=== PATIENT | female | born 1985 | race African-American/Black ===

== ENCOUNTER 2017-11-12 15:51 | Emergency (ER) | payer OTHER ==
[2017-11-12 16:05] VITALS: BP 140/90; PULSE 91; TEMP 99.2; BMI 20.9
--- NOTE | 2017-11-12 16:05 | PDOC ---
Rapid Medical Evaluation Chief Complaint: Vaginal Bleeding Medical Evaluation: Allergies Allergy/AdvReac Type Severity Reaction Status Date / Time No Known Allergies Allergy Verified 11/12/17 16:01 11/12/17 16:03 I have performed a brief in-person evaluation of this patient. The patient presents with a chief complaint of: Blood on tissue x 5 days. Unsure if as have had both neg and positive preg tests over past week. LMP was last month, would be ~6 weeks if preg per pt, No abd pain, dysuria, n/v/ f/c. w/ 1 spon AB Pertinent physical exam findings:stable I have ordered the following:beta/ua The patient will proceed to the ED for further evaluation 11/12/17 16:06 Discharge Disposition - Diagnosis Vaginal bleeding - Referrals - Patient Instructions - Post Discharge Activity
--- NOTE | 2017-11-12 16:40 | PDOC ---
History of Present Illness - General Chief Complaint: Vaginal Bleeding Stated Complaint: VAGINAL BLEEDING () Time Seen by Provider: 11/12/17 16:10 History Source: Patient Exam Limitations: No Limitations - History of Present Illness Initial Comments: CHIEF COMPLAINT: 32 y/o afebrile female, [id number], with LMP of 4/15 c/o vaginal bleeding. HISTORY OF PRESENT ILLNESS: The patient states she had sex on 10/18. She did take a test that was positive. she fell 5 days ago and then then next day began vaginal bleeding. She states she still has some bleeding and a questionable 2nd test. SHe was seen at a clinic today and had a beta of 90 with an ultrasound showing no IUP but complex right adnexal cyst. SHe was told to come here for possible ectopic. Vital signs on arrival are within normal limits. REVIEW OF SYSTEMS: GENERAL/CONSTITUTIONAL: No fever/chills. No weakness. No weight change. HEAD, EYES, EARS, NOSE AND THROAT: No change in vision. No ear pain or discharge. No sore throat. CARDIOVASCULAR: No chest pain or shortness of breath. RESPIRATORY: No cough, wheezing, or hemoptysis. GASTROINTESTINAL: No abd pain, nausea, vomiting, diarrhea. GENITOURINARY: No dysuria, frequency, or change in urination. +vaginal bleeding. MUSCULOSKELETAL: No joint or muscle swelling or pain. No neck or back pain. SKIN: No rash or easy bruising. NEUROLOGIC: No headache, vertigo, loss of consciousness, or loss of sensation. PHYSICAL EXAM: GENERAL: The patient is awake, alert, and fully oriented, in no acute distress. HEAD: Normal with no signs of trauma. ABDOMEN: Soft, non-distended, non-tender even to deep palpation, no hepatomegaly or splenomegaly, no masses. VAGINAL: DEFERRED EXTREMITIES: Normal range of motion, no edema. NEUROLOGICAL: Normal speech, normal gait. CN II-XII grossly intact. SKIN: Warm, dry, normal turgor, no rashes or lesions noted. Past History - Past Medical History Allergies/Adverse Reactions: Allergies Allergy/AdvReac Type Severity Reaction Status Date / Time No Known Allergies Allergy Verified 11/12/17 16:01 Home Medications: Ambulatory Orders NK [No Known Home Medication] 11/12/17 COPD: No - Immunization History Immunization Up to Date: Yes - Suicide/Smoking/Psychosocial Hx Smoking History: Never smoked Hx Alcohol Use: No Drug/Substance Use Hx: No *Physical Exam - Vital Signs Last Vital Signs Temp Pulse Resp BP Pulse Ox 99.2 F 91 H 18 140/90 99 11/12/17 16:00 11/12/17 16:00 11/12/17 16:00 11/12/17 16:00 11/12/17 16:00 Medical Decision Making - Medical Decision Making A/P: 32 y/o female who had beta and ultrasound performed today from another location sent here for management of possible ectopic . Discussed the case with Dr. Landaverde in the ER and he confirms there is nothing to do at this time. The patient is to return to the ER in 2 days for repeat beta HCG and transvaginal ultrasound to determine ectopic or not. Patient given instructions. Instructed her to come to the ER sooner if she develops abdominal pain or heavy vaginal bleeding, or any other concerning symptoms. The patient verbalizes understanding of all instructions, has no further questions and is awaiting discharge. *DC/Admit/Observation/Transfer Diagnosis at time of Disposition: Vaginal bleeding during - Discharge Dispostion Disposition: HOME Condition at time of disposition: Good - Referrals - Patient Instructions Printed Discharge Instructions: DI for Vaginal Bleeding During Additional Instructions: Discharge Instructions: -You have a positive blood test with a beta hcg of 90 -Your ultrasound shows no IUP but a complex right ovarian cyst, which is concerning for an ectopic -You must return to the ER or your doctor's office in 2 days to have the blood work and ultrasound repeated -Please return to the ER immediately with any worsening of pain or bleeding - Post Discharge Activity
== END 2017-11-12 16:47 | disposition home or self-care (01) ==
LOC: JERFT 15:51
DX: O26.891 Other specified pregnancy related conditions, first trimester (principal); O20.8 Other hemorrhage in early pregnancy; Z3A.01 Less than 8 weeks gestation of pregnancy
CPT/HCPCS: 99281-25

== ENCOUNTER 2017-11-13 02:53 | Emergency (ER) | payer OTHER ==
[2017-11-13 03:43] VITALS: BP 136/90; PULSE 86; TEMP 98.1; BMI 25.4
--- NOTE | 2017-11-13 05:11 | PDOC ---
History of Present Illness - General Chief Complaint: Vaginal Bleeding Stated Complaint: ABD PAIN Time Seen by Provider: 11/13/17 04:41 History Source: Patient Exam Limitations: No Limitations - History of Present Illness Initial Comments: 11/13/17 05:41 Best Contact:[phone] PCP:N/A Pmhx:N/A Pshx:N/A Allergies:NKDA FH:N/A Social Hx: Cigarettes/ 0 Alcohol/ 0 Drugs/0 LMP:10/03/2017 32-year-old female presents to the emergency department for repeat blood tests. Patient states she fell onto her buttocks (11/07/2017) and started vaginally bleeding (11/08/2017).patient states she noticed some clots on the and was concerned but didn't get a chance to go see her respite provider/Dr. Campbell until yesterday (11/12/2017. patient was ultimately sent for a transvaginal ultrasound. Patient states she had an ultrasound done at [facility] and she was informed that there is no IUP but a complex right ovarian cyst. Patient was discharged from [facility] yesterday morning and came here to [facility] emergency department yesterday afternoon. Patient states upon discharge, she was informed to have blood work done. Patient states she was unclear on when she should return for blood work therefore she is here now. Patient denies fever, chills, nausea/vomiting, headache, dizziness, lightheadedness, neck pain/stiffness, back pains, chest pain, shortness of breath, abdominal pains, flank pains, urinary symptoms: Frequency/urgency/ hesitancy, hematuria. Patient states her vaginal bleeding has subsided to a scant amount now. Past History - Past Medical History Allergies/Adverse Reactions: Allergies Allergy/AdvReac Type Severity Reaction Status Date / Time No Known Allergies Allergy Verified 11/13/17 03:43 Home Medications: Ambulatory Orders NK [No Known Home Medication] 11/12/17 COPD: No - Reproductive History Is Patient Now?: Yes - Immunization History Immunization Up to Date: Yes - Suicide/Smoking/Psychosocial Hx Smoking History: Never smoked Have you smoked in the past 12 months: No Information on smoking cessation initiated: No Hx Alcohol Use: No Drug/Substance Use Hx: No Review of Systems - Review of Systems Able to Perform ROS?: Yes Comments:: 11/13/17 05:46 CONSTITUTIONAL: Absent: fever, chills, diaphoresis, generalized weakness, malaise, loss of appetite HEENT: Absent: rhinorrhea, nasal congestion, throat pain, throat swelling, difficulty swallowing, mouth swelling, ear pain, eye pain, visual Changes CARDIOVASCULAR: Absent: chest pain, loss of consciousness, palpitations, irregular heart rate, peripheral edema RESPIRATORY: Absent: cough, shortness of breath, dyspnea with exertion, orthopnea, wheezing, stridor, hemoptysis GASTROINTESTINAL: Absent: abdominal pain, abdominal distension, nausea, vomiting, diarrhea, constipation, melena, hematochezia GENITOURINARY: Absent: dysuria, frequency, urgency, hesitancy, hematuria, flank pain, genital pain MUSCULOSKELETAL: Absent: myalgia, arthralgia, joint swelling SKIN: Absent: rash, itching, pallor HEMATOLOGIC/IMMUNOLOGIC: Absent: easy bleeding, easy bruising, lymphadenopathy, frequent infections ENDOCRINE: Absent: unexplained weight gain, unexplained weight loss, heat intolerance, cold intolerance NEUROLOGIC: Absent: headache, focal weakness or paresthesias, dizziness, unsteady gait, seizure, mental status changes, bladder or bowel incontinence PSYCHIATRIC: Absent: anxiety, depression, suicidal or homicidal ideation, hallucinations. Is the patient limited Kazakh proficient: No *Physical Exam - Vital Signs Last Vital Signs Temp Pulse Resp BP Pulse Ox 98.1 F 86 18 136/90 98 11/13/17 03:41 11/13/17 03:41 11/13/17 03:41 11/13/17 03:41 11/13/17 03:41 - Physical Exam Comments: 11/13/17 05:46 GENERAL: Well developed, well nourished. Awake and alert. No acute distress. HEENT: Normocephalic, atraumatic. PERRLA, EOMI. No conjunctival pallor. Sclera are non- icteric. Moist mucous membranes. Oropharynx is clear. NECK: Supple. Full ROM. No JVD. Carotid pulses 2+ and symmetric, without bruits. No thyromegaly. No lymphadenopathy. CARDIOVASCULAR: Regular rate and rhythm. No murmurs, rubs, or gallops. Distal pulses are 2+ and symmetric. PULMONARY: No evidence of respiratory distress. Lungs clear to auscultation bilaterally. No wheezing, rales or rhonchi. ABDOMINAL: Soft. Non-tender. Non-distended. No rebound or guarding. No organomegaly. Normoactive bowel sounds. MUSCULOSKELETAL Normal range of motion at all joints. No bony deformities or tenderness. No CVA tenderness. EXTREMITIES: No cyanosis. No clubbing. No edema. No calf tenderness. SKIN: Warm and dry. Normal capillary refill. No rashes. No jaundice. NEUROLOGICAL: Alert, awake, appropriate. Cranial nerves 2-12 intact. No deficits to light touch and temperature in face, upper extremities and lower extremities. No motor deficits in the in face, upper extremities and lower extremities. Normoreflexic in the upper and lower extremities. Normal speech. Toes are down- going bilaterally. Gait is normal without ataxia. PSYCHIATRIC: Cooperative. Good eye contact. Appropriate mood and affect. Pelvic: External genitalia normal without lesions. Vaginal vault small amount of blood Cervix is long and closed. 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 Patient states she was seen by her respite provider yesterday and was sent for an ultrasound which she had done at [facility] yesterday morning. Yesterday afternoon, she was here in the emergency department at [facility]. She was informed that you were no IUP with a complex right ovarian cysts. Patient had her beta Quant done and was 90. Patient was informed to return back to the emergency department or the respite provider in 2-3 days for a repeat beta Quant and transvaginal ultrasound. Patient states she was confused about when to return so she decided to come here now. CBC/chemistry/UA and type and screen has been drawn by me during this visit. *DC/Admit/Observation/Transfer Diagnosis at time of Disposition: Vaginal bleeding during , Threatened - Discharge Dispostion Disposition: HOME Condition at time of disposition: Fair Decision to Admit order: No - Referrals Referrals: Dallas Lopes MD [Staff Physician] - - Patient Instructions Printed Discharge Instructions: DI for Threatened Additional Instructions: Increase fluids Tylenol as needed for pain Follow-up with the respite provider and have a repeat blood work/ultrasound done in 2 days Return back to the emergency department for any concerns - Post Discharge Activity
[2017-11-13 05:27] LABS: BASO % 1.1 % (0-2.0); EOS % 1.8 % (0-4.5); HEMOGLOBIN 12.4 GM/dL (10.7-15.3); LYMPH % 27.4 % (8-40); MCH 28.3 pg (25.7-33.7); MCHC 32.7 g/dl (32.0-36.0); MEAN CELL VOLUME 86.6 fl (80-96); MONO % 14.3 % (3.8-10.2); NEUT % 55.4 % (42.8-82.8); PLATELET COUNT 273 K/MM3 (134-434); RBC 4.39 M/mm3 (3.60-5.2); RDW 13.8 % (11.6-15.6); WHITE BLOOD COUNT 8.3 K/mm3 (4.0-10.0)
[2017-11-13 05:32] LABS: URINE APPEARANCE CLEAR; URINE BILIRUBIN NEGATIVE (<2.0 mg/dL); URINE COLOR LTYELLOW; URINE GLUCOSE (UA) NEGATIVE (NEGATIVE); URINE KETONE TRACE (NEGATIVE); URINE LEUK ESTERASE NEGATIVE (NEGATIVE); URINE NITRITE NEGATIVE (NEGATIVE); URINE PROTEIN NEGATIVE (NEGATIVE)
[2017-11-13 05:41] LABS: EPI CELLS RARE /HPF (FEW); URINE MUCUS RARE
[2017-11-13 05:58] LABS: ALBUMIN 3.5 g/dl (3.4-5.0); ANION GAP 7 (8-16); BILIRUBIN,TOTAL 0.4 mg/dL (0.2-1.0); BLOOD UREA NITROGEN 11 mg/dL (7-18); CALCIUM 8.6 mg/dL (8.5-10.1); CHLORIDE 106 mmol/L (98-107); CO2 26 mmol/L (21-32); CREATININE 0.8 mg/dL (0.55-1.02); GLUCOSE,RANDOM 83 mg/dL (74-106); POTASSIUM 3.6 mmol/L (3.5-5.1); SGOT/AST 12 U/L (15-37); SGPT/ALT 12 U/L (12-78); SODIUM 139 mmol/L (136-145); TOT PROT 7.4 g/dl (6.4-8.2)
[2017-11-13 06:00] LABS: ALK PHOS 75 U/L (45-117)
== END 2017-11-13 06:37 | disposition home or self-care (01) ==
LOC: JER 02:53
DX: O26.891 Other specified pregnancy related conditions, first trimester (principal); O20.0 Threatened abortion; Z3A.01 Less than 8 weeks gestation of pregnancy; W18.39XA Other fall on same level, initial encounter; Y93.89 Activity, other specified; Y92.89 Other specified places as the place of occurrence of the external cause; Y99.8 Other external cause status
CPT/HCPCS: 36415; 80053; 81003; 81015; 84702; 85025; 86850; 86900; 86901; 99282-25

== ENCOUNTER 2021-11-28 08:15 | Emergency (ER) | payer OTHER ==
[2021-11-28 08:28] VITALS: BP 161/97; PULSE 71; TEMP 98.1; BMI 32.0
[2021-11-28] MEDS ORDERED: KETOROLAC TROMETHAMINE 30 MG/1 ML VIAL IM ONE (09:09)
[2021-11-28] MEDS ORDERED: LIDOCAINE 5% TOPICAL PATCH TP ONE (09:09)
[2021-11-28] MEDS ORDERED: diazePAM 5 MG TABLET PO ONE (09:09)
[2021-11-28] MEDS ORDERED: LIDOCAINE 5% TOPICAL PATCH ONE (09:16)
[2021-11-28] MEDS ORDERED: diazePAM 5 MG TABLET ONE (09:17)
[2021-11-28] MEDS ORDERED: KETOROLAC TROMETHAMINE 30 MG/1 ML VIAL ONE (09:17)
[2021-11-28 11:10] LABS: EPI CELLS >36 /uL (0-25.1); HYALINE CASTS 4 /uL (0-3.1); URINE APPEARANCE CLOUDY; URINE BACTERIA 935 /uL (0-1359); URINE BILIRUBIN NEGATIVE (NEGATIVE); URINE COLOR YELLOW; URINE GLUCOSE (UA) NEGATIVE (NEGATIVE); URINE KETONE 3+ (NEGATIVE); URINE LEUK ESTERASE NEGATIVE (NEGATIVE); URINE NITRITE NEGATIVE (NEGATIVE); URINE PROTEIN NEGATIVE (NEGATIVE); URINE RBC 13 /uL (0-23.9); URINE UROBILINOGEN 0.2 mg/dL (0.2-1.0); URINE WBC 26 /uL (0-25.8)
[2021-11-28 11:24] LABS: HCG,QUALITATIVE URINE Negative
[2021-11-28] MEDS ORDERED: LIDOCAINE PATCH REMOVAL MC SCH (22:00)
== END 2021-11-28 11:48 | disposition home or self-care (01) ==
LOC: JERFT 08:15
PROC: 3E023GC Introduction of Other Therapeutic Substance into Muscle, Percutaneous Approach (ICD-10-PCS; principal; 2021-11-28)
DX: M54.50 Low back pain, unspecified (principal)
CPT/HCPCS: 81003; 84703; 87086; 99284-25

== ENCOUNTER 2022-04-27 02:28 | Emergency (ER) | payer OTHER ==
[2022-04-27 02:38] VITALS: BP 130/85; PULSE 69; RESP 18; TEMP 97.6; BMI 30.2
== END 2022-04-27 05:18 | disposition home or self-care (01) ==
LOC: JER 02:28
DX: J06.9 Acute upper respiratory infection, unspecified (principal)
CPT/HCPCS: 71046-TC-FY; 93005; 93010; 99284-25

== ENCOUNTER 2022-12-21 08:35 | Emergency (ER) | payer OTHER ==
[2022-12-21 08:46] VITALS: BP 116/82; PULSE 78; RESP 18; TEMP 98.6; BMI 28.9
[2022-12-21] MEDS ORDERED: KETOROLAC TROMETHAMINE 30 MG/1 ML VIAL IM ONE (09:27)
[2022-12-21] MEDS ORDERED: ACETAMINOPHEN 500 MG TABLET (FP) PO ONE (09:27)
[2022-12-21] MEDS ORDERED: ACETAMINOPHEN 325 MG TABLET (FP) ONE (09:56)
[2022-12-21] MEDS ORDERED: KETOROLAC TROMETHAMINE 30 MG/1 ML VIAL ONE (09:56)
== END 2022-12-21 10:23 | disposition home or self-care (01) ==
LOC: JERFT 08:35 → JER 08:35 → JERFT 10:23
PROC: 3E0233Z Introduction of Anti-inflammatory into Muscle, Percutaneous Approach (ICD-10-PCS; principal; 2022-12-21)
DX: K08.89 Other specified disorders of teeth and supporting structures (principal); G89.29 Other chronic pain
CPT/HCPCS: 99284-25

== ENCOUNTER 2024-04-22 19:56 | Emergency (ER) | payer OTHER ==
[2024-04-22 20:27] VITALS: BP 127/85; PULSE 62; RESP 16; TEMP 98.6; BMI 32.0
[2024-04-22] MEDS ORDERED: ACETAMINOPHEN 500 MG TABLET (FP) ONE (21:13)
[2024-04-22] MEDS ORDERED: LIDOCAINE 4% PATCH TP ONE (21:13)
[2024-04-22] MEDS ORDERED: METHOCARBAMOL 500 MG TABLET ONE (21:13)
[2024-04-22] MEDS: ACETAMINOPHEN 500 MG TABLET (FP) PO ONE (21:23)
[2024-04-22] MEDS: LIDOCAINE 4% PATCH TP ONE (21:24)
[2024-04-22] MEDS: METHOCARBAMOL 750 MG TAB PO ONE (21:24)
[2024-04-22 21:57] LABS: EPI CELLS >36 /uL (0-25.1); HYALINE CASTS 0 /uL (0-3.1); PH,URINE 6.5 (5.0-8.0); URINE APPEARANCE CLEAR; URINE BACTERIA 1178 /uL (0-1359); URINE BILIRUBIN NEGATIVE (NEGATIVE); URINE COLOR YELLOW; URINE GLUCOSE (UA) NEGATIVE (NEGATIVE); URINE KETONE NEGATIVE (NEGATIVE); URINE LEUK ESTERASE 1+ (NEGATIVE); URINE NITRITE NEGATIVE (NEGATIVE); URINE PROTEIN NEGATIVE (NEGATIVE); URINE RBC 16 /uL (0-23.9); URINE UROBILINOGEN 0.2 mg/dL (0.2-1.0); URINE WBC 42 /uL (0-25.8)
[2024-04-22] MEDS: CEPHALEXIN MONOHYDRATE 500 MG CAPSULE (UD) PO ONE (22:28)
== END 2024-04-22 22:30 | disposition home or self-care (01) ==
LOC: JER 19:56
DX: M54.50 Low back pain, unspecified (principal); G89.29 Other chronic pain; R51.9 Headache, unspecified; Z20.822 Contact with and (suspected) exposure to COVID-19
CPT/HCPCS: 0241U-QW; 81003; 84703; 87086; 99283-25

== ENCOUNTER 2024-10-01 02:45 | Emergency (ER) | payer OTHER ==
[2024-10-01 03:08] VITALS: BMI 30.2
[2024-10-01] MEDS: FAMOTIDINE 10 MG TABLET PO ONE (03:17)
[2024-10-01] MEDS: ONDANSETRON 4 MG TABLET PO ONE (03:17)
[2024-10-01] MEDS ORDERED: FAMOTIDINE 20 MG/50 ML IVPB 20 MG/50 ML MG IVPB ONE (03:22)
[2024-10-01] MEDS ORDERED: ONDANSETRON 4 MG/2 ML VIAL ONE (03:22)
[2024-10-01] MEDS: ONDANSETRON 4 MG/2 ML VIAL IVPB ONE (03:34)
[2024-10-01] MEDS: FAMOTIDINE 20 MG/50 ML IVPB 20 MG/50 ML MG IVPB ONE (03:34)
[2024-10-01] MEDS: SODIUM CHLORIDE 0.9% 500 ML INFUS.BAG IV ONE (03:34)
[2024-10-01 03:58] LABS: ABSOLUTE IMMATURE GRANULOCYTES 0.02 x10^3/uL (0.0-0.031); BASOPHILS # 0.05 x10^3/uL (0.01-0.08); EOSINOPHIL % 0.3 % (0.7-5.8); EOSINOPHILS # 0.03 x10^3/uL (0.04-0.36); HEMATOCRIT 41.5 % (34.1-44.9); MCHC 31.3 g/dl (32.2-35.5); MEAN CELL VOLUME 87.9 fl (79.4-94.8); MEAN PLT VOLUME 9.9 fl (9.4-12.3); MONOCYTE # 0.71 x10^3/uL (0.24-0.86); MONOCYTE % 8.1 % (4.7-12.5); PLATELET COUNT 290 x10^3/uL (182-369); RDW 14.1 % (12.1-16.8)
[2024-10-01 04:30] LABS: POTASSIUM 4.1 mmol/L (3.5-5.1)
[2024-10-01 04:33] LABS: ALBUMIN 3.4 g/dl (3.4-5.0); CALCIUM 8.6 mg/dL (8.5-10.1)
[2024-10-01 04:36] LABS: CREATININE 0.8 mg/dL (0.55-1.3)
[2024-10-01 04:38] LABS: BILIRUBIN,TOTAL 0.2 mg/dL (0.2-1); TOT PROT 7.5 g/dl (6.4-8.2)
[2024-10-01 05:18] LABS: HCV DIAGNOSTIC IN-HOUSE W/RFLX NON-REACTIVE (NONREACTIVE)
[2024-10-01 05:19] LABS: HIV INTERPRETATION NEGATIVE (NEGATIVE)
[2024-10-01 05:45] LABS: PH,URINE 7.5 (5.0-8.0); URINE APPEARANCE CLEAR; URINE BILIRUBIN NEGATIVE (NEGATIVE); URINE COLOR YELLOW; URINE GLUCOSE (UA) NEGATIVE (NEGATIVE); URINE KETONE NEGATIVE (NEGATIVE); URINE LEUK ESTERASE NEGATIVE (NEGATIVE); URINE NITRITE NEGATIVE (NEGATIVE); URINE PROTEIN NEGATIVE (NEGATIVE); URINE UROBILINOGEN 0.2 mg/dL (0.2-1.0)
[2024-10-01] MEDS ORDERED: KETOROLAC TROMETHAMINE 15 MG/ML VIAL ONE (06:07)
[2024-10-01] MEDS: KETOROLAC TROMETHAMINE 15 MG/ML VIAL IVPUSH ONE (06:11)
[2024-10-01 06:43] VITALS: BP 126/64; PULSE 77; RESP 16; TEMP 98.4
== END 2024-10-01 06:44 | disposition home or self-care (01) ==
LOC: JER 02:45
PROC: 3E033GC Introduction of Other Therapeutic Substance into Peripheral Vein, Percutaneous Approach (ICD-10-PCS; principal; 2024-10-01)
PROC: 3E0333Z Introduction of Anti-inflammatory into Peripheral Vein, Percutaneous Approach (ICD-10-PCS; 2024-10-01)
PROC: 3E033GC Introduction of Other Therapeutic Substance into Peripheral Vein, Percutaneous Approach (ICD-10-PCS; 2024-10-01)
DX: S39.012A Strain of muscle, fascia and tendon of lower back, initial encounter (principal); S39.011A Strain of muscle, fascia and tendon of abdomen, initial encounter; R10.84 Generalized abdominal pain; R11.0 Nausea; W01.0XXA Fall on same level from slipping, tripping and stumbling without subsequent striking against object, initial encounter
CPT/HCPCS: 36415; 74177-TC; 80053; 81003; 83690; 84703; 85025; 86803; 87086; 87389; 99285-25; Q9967